=== PATIENT | male | born 1950 | race Caucasian/White ===

== ENCOUNTER 2017-02-05 07:57 | Emergency (ER) | payer MEDICARE ==
[~2017-02-05] VITALS: Ht 175.3 cm; Wt 34.1 kg
[2017-02-05 08:02] VITALS: BP 153/73
[2017-02-05] MEDS ORDERED: GENTAMICIN SULFATE 0.3% OPHTHALMIC SOLUTION 5 ML OS ONE (08:45)
[2017-02-05] MEDS ORDERED: GENTAMICIN SULFATE 0.3% 3.5 GM OPHTHALMIC OINTMENT OS ONE (08:45)
== END 2017-02-05 09:09 | disposition home or self-care (01) ==
LOC: EMS 08:01
DX: S05.02XA Injury of conjunctiva and corneal abrasion without foreign body, left eye, initial encounter (principal); J44.9 Chronic obstructive pulmonary disease, unspecified; W22.8XXA Striking against or struck by other objects, initial encounter; Y93.89 Activity, other specified; Y92.89 Other specified places as the place of occurrence of the external cause; Y99.8 Other external cause status
CPT/HCPCS: 99283

== ENCOUNTER 2017-02-11 09:04 | Emergency (ER) | payer MEDICARE ==
[~2017-02-11] VITALS: Ht 175.3 cm; Wt 76.4 kg
[2017-02-11] MEDS ORDERED: GENTOO OP (09:12)
[2017-02-11 09:16] VITALS: BP 124/75
== END 2017-02-11 09:45 | disposition home or self-care (01) ==
LOC: EMS 09:06
DX: H10.12 Acute atopic conjunctivitis, left eye (principal); J44.9 Chronic obstructive pulmonary disease, unspecified
CPT/HCPCS: 99281